=== PATIENT | male | born 1990 | race Caucasian/White ===

== ENCOUNTER 2018-12-18 13:42 | Emergency (ER) | payer OTHER ==
[~2018-12-18] VITALS: Ht 185.5 cm; Wt 65.0 kg
--- NOTE | 2018-12-18 13:58 | ED Chest Pain ---
General Chief Complaint: Chest Pain Stated Complaint: CHEST PAIN Source: patient Exam Limitations: no limitations History of Present Illness Date Seen by Provider: Dec 18, 2018 Time Seen by Provider: 13:50 Initial Comments Ate a corn dog and drank a Coke at [employer] about 1 hour prior to arrival. Shortly after eating he developed some upper abdominal and lower chest discomfort which persists on arrival to the ER. He states he took some antacids without any reli ef. Denies any history of stomach or heart problems. He is a nonsmoker, but does chew tobacco. Denies any illicit drug use. Some associated nausea without diaphoresis. No vomiting. Radiation: no radiation Activities at Onset: rest Prior CP/Workup: no prior chest pain, no prior cardiac workup ASA po [employer]: No NTG SL [employer]: No Allergies and Home Medications Allergies Coded Allergies: No Known Drug Allergies (Unverified , 12/18/18) Home Medications Famotidine 20 Mg Tablet, 20 MG PO BID Prescribed by: OZZY ERICKSON on 12/18/18 [id number] Patient Home Medication List Home Medication List Reviewed: Yes Review of Systems Review of Systems Constitutional: No dizziness, No fever, No malaise, No weakness Respiratory: Denies Cough, Denies Orthopnea, Denies Shortness of Air Cardiovascular: See HPI, Chest Pain; Denies Edema, Denies Irregular Heart Rate, Denies Lightheadedness Gastrointestinal: See HPI; Denies Abdomen Distended; Abdominal Pain; Denies Blood Streaked Stools, Denies Constipated, Denies Diarrhea, Denies Difficulty Swallowing; Nausea; Denies Poor Appetite, Denies Poor Fluid Intake, Denies Vomiting Musculoskeletal: No back pain, No joint pain Skin: No change in color, No rash Past Anthash-[id number]-Ajiwzd Hx Past Med/Social Hx: Reviewed Nursing Past Med/Soc Hx Patient Social History Recent Foreign Travel: No Physical Exam Vital Signs Vital Signs - First Documented 12/18/18 12/18/18 13:42 13:50 Temp 37.0 Pulse 75 Resp 16 B/P (MAP) 153/80 (104) Pulse Ox 100 O2 Delivery Room Air Capillary Refill : Height, Weight, BMI Height: '" Weight: lbs. oz. kg; BMI Method: General Appearance: WD/WN Neck: Non Tender, Supple Respiratory: Chest Non Tender, Lungs Clear, Normal Breath Sounds Cardiovascular: Regular Rate, Rhythm, No Edema, No Gallop, Normal Peripheral Pulses Gastrointestinal: Non Tender, Soft; No Distended, No Guarding Extremity: Normal Capillary Refill, Non Tender, No Calf Tenderness Skin: Normal Color, Warm/Dry Progress/Results/Core Measures Results/Orders Lab Results Laboratory Tests Test 12/18/18 13:50 Range/Units White Blood Count 4.5 4.3-11.0 10^3/uL Red Blood Count 4.90 4.35-5.85 10^6/uL Hemoglobin 14.6 13.3-17.7 G/DL Hematocrit 43 40-54 % Mean Corpuscular Volume 89 80-99 FL Mean Corpuscular Hemoglobin 30 25-34 PG Mean Corpuscular Hemoglobin Concent 34 32-36 G/DL Red Cell Distribution Width 12.5 10.0-14.5 % Platelet Count 222 130-400 10^3/uL Mean Platelet Volume 10.0 7.4-10.4 FL Neutrophils (%) (Auto) 60 42-75 % Lymphocytes (%) (Auto) 25 12-44 % Monocytes (%) (Auto) 14 H 0-12 % Eosinophils (%) (Auto) 1 0-10 % Basophils (%) (Auto) 1 0-10 % Neutrophils # (Auto) 2.7 1.8-7.8 X 10^3 Lymphocytes # (Auto) 1.1 1.0-4.0 X 10^3 Monocytes # (Auto) 0.6 0.0-1.0 X 10^3 Eosinophils # (Auto) 0.0 0.0-0.3 10^3/uL Basophils # (Auto) 0.0 0.0-0.1 10^3/uL Sodium Level 142 135-145 MMOL/L Potassium Level 4.1 3.6-5.0 MMOL/L Chloride Level 103 98-107 MMOL/L Carbon Dioxide Level 30 21-32 MMOL/L Anion Gap 9 5-14 MMOL/L Blood Urea Nitrogen 9 7-18 MG/DL Creatinine 1.07 0.60-1.30 MG/DL Estimat Glomerular Filtration Rate > 60 BUN/Creatinine Ratio 8 Glucose Level 85 70-105 MG/DL Calcium Level 9.7 8.5-10.1 MG/DL Corrected Calcium 8.5-10.1 MG/DL Total Bilirubin 0.7 0.1-1.0 MG/DL Aspartate Amino Transf (AST/SGOT) 15 5-34 U/L Alanine Aminotransferase (ALT/SGPT) 10 0-55 U/L Alkaline Phosphatase 69 40-136 U/L Troponin I < 0.30 <0.30 NG/ML Total Protein 7.7 6.4-8.2 GM/DL Albumin 4.9 H 3.2-4.5 GM/DL My Orders Orders - OZZY ERICKSON DO Ed Iv/Invasive Line Start (12/18/18 13:53) Cbc With Automated Diff (12/18/18 13:53) Comprehensive Metabolic Panel (12/18/18 13:53) Troponin I Fs (12/18/18 13:53) Chest 1 View Ap/Pa Only (12/18/18 13:53) Ekg Tracing (12/18/18 14:12) Continuous Ekg Monitoring (12/18/18 14:12) Famotidine Injection (Pepcid Injection) (12/18/18 14:15) Medications Given in ED Current Medications Medications Dose Ordered Sig/Jayden Route Start Time Stop Time Status Last Admin Dose Admin Famotidine 20 mg ONCE ONCE IVP 12/18/18 14:15 12/18/18 14:16 DC 12/18/18 14:19 20 MG Vital Signs/I&O 12/18/18 12/18/18 12/18/18 13:42 13:50 15:17 Temp 37.0 Pulse 75 55 Resp 16 16 B/P (MAP) 153/80 (104) 120/61 Pulse Ox 100 99 O2 Delivery Room Air Room Air Initial ECG Impression Date: Dec 18, 2018 Initial ECG Impression Time: 13:44 Initial ECG Rate: 67 Initial ECG Rhythm: Normal Sinus Initial ECG Intervals: Normal Initial ECG Impression: Normal Initial ECG Comparisson: No Previous ECG Available Departure Impression Primary Impression: Chest pain Qualified Codes: R07.9 - Chest pain, unspecified Disposition: 01 HOME, SELF-CARE Condition: Improved Departure-Patient Inst. Decision time for Depature: 15:13 Referrals: NO,LOCAL PHYSICIAN (PCP/Family) Primary Care Physician Patient Instructions: Chest Pain (DC) Scripts Famotidine (Pepcid) 20 Mg Tablet 20 MG PO BID, #30 TAB Prov: OZZY ERICKSON DO 12/18/18 OZZY ERICKSON DO Dec 18, 2018 13:58
[2018-12-18 14:09] LABS: WHITE BLOOD COUNT 4.5 10^3/uL (4.3-11.0)
[2018-12-18 14:10] LABS: BASOPHILS % (AUTO) 1 % (0-10); EOSINOPHILS % (AUTO) 1 % (0-10); HEMATOCRIT 43 % (40-54); HEMOGLOBIN 14.6 G/DL (13.3-17.7); LYMPHOCYTES # (AUTO) 1.1 X 10^3 (1.0-4.0); LYMPHOCYTES % (AUTO) 25 % (12-44); MEAN CORPUSCULAR HEMOGLOBIN 30 PG (25-34); MEAN CORPUSCULAR HGB CONC 34 G/DL (32-36); MEAN CORPUSCULAR VOLUME 89 FL (80-99); MONOCYTES # (AUTO) 0.6 X 10^3 (0.0-1.0); MONOCYTES % (AUTO) 14 % (0-12); NEUTROPHILS # (AUTO) 2.7 X 10^3 (1.8-7.8); NEUTROPHILS % (AUTO) 60 % (42-75); PLATELET COUNT 222 10^3/uL (130-400); RED CELL DISTRIBUTION WIDTH 12.5 % (10.0-14.5)
--- NOTE | 2018-12-18 14:12 | Diagnostic Imaging Report ---
INDICATION: Shortness of breath. FINDINGS: The heart size, mediastinal configuration, and pulmonary vascularity are within normal limits. There is no pleural effusion, pneumothorax, or pneumonia. The osseous structures are unremarkable. IMPRESSION: No acute cardiopulmonary abnormality. Dictated by: Dictated on workstation # [id number]
[2018-12-18] MEDS ORDERED: FAMOTIDINE 20MG/2ML IV (PEPCID) IVP ONE (14:15)
[2018-12-18 14:25] LABS: BILIRUBIN,TOTAL 0.7 MG/DL (0.1-1.0); BUN/CREATININE RATIO 8; CALCIUM 9.7 MG/DL (8.5-10.1); CARBON DIOXIDE 30 MMOL/L (21-32); CHLORIDE 103 MMOL/L (98-107); CREATININE SERUM 1.07 MG/DL (0.60-1.30); GFR ESTIMATED > 60; GLUCOSE 85 MG/DL (70-105); POTASSIUM 4.1 MMOL/L (3.6-5.0); SODIUM 142 MMOL/L (135-145)
[2018-12-18 14:26] LABS: ALANINE AMINOTRANSFERASE 10 U/L (0-55); ALBUMIN 4.9 GM/DL (3.2-4.5); ALKALINE PHOSPHATASE 69 U/L (40-136); TOTAL PROTEIN 7.7 GM/DL (6.4-8.2)
[2018-12-18] MEDS ORDERED: FAMO-119 PO (15:14)
[2018-12-18 15:17] VITALS: BP 120/61
== END 2018-12-18 15:18 | disposition home or self-care (01) ==
LOC: EDUNIT# 13:42 → ER FS 13:44
DX: R07.9 Chest pain, unspecified (principal)
CPT/HCPCS: 36415; 71045; 80053; 84484; 85025; 93005